=== PATIENT | male | born 1975 | race Caucasian/White ===

== ENCOUNTER 2019-01-16 08:13 | Emergency (ER) | payer MEDICARE, BC, MEDICAID ==
[~2019-01-16] VITALS: Ht 180.3 cm; Wt 79.4 kg
--- NOTE | 2019-01-16 08:23 | NUR ---
is at bedside doing the MSE.
--- NOTE | 2019-01-16 08:35 | NUR ---
Patient discharged to home in stable conditon. Written and verbal after care instructions given to patient. Patient verbalizes understanding of instructions.
== END 2019-01-16 08:36 | disposition home or self-care (01) ==
LOC: ER 08:13
DX: L01.00 Impetigo, unspecified (principal); F17.290 Nicotine dependence, other tobacco product, uncomplicated
CPT/HCPCS: A4663

== ENCOUNTER 2019-02-14 21:50 | Emergency (ER) | payer MEDICARE, BC, MEDICAID ==
[~2019-02-14] VITALS: Ht 180.3 cm; Wt 79.4 kg
[2019-02-14] MEDS ORDERED: QUET200T PO (22:01)
--- NOTE | 2019-02-14 22:02 | NUR ---
Dr. Dozier at bedside for MSE.
--- NOTE | 2019-02-14 22:13 | NUR ---
Xray at bedside.
--- NOTE | 2019-02-14 22:45 | NUR ---
Ultrasound at bedside.
[2019-02-14] MEDS ORDERED: SULFAMETH/TRIMETH 800/160 MG TABLET PO ONE (23:30)
[2019-02-14] MEDS ORDERED: CEphaleXIN 500 MG CAPSULE PO ONE (23:30)
[2019-02-14] MEDS ORDERED: CEphaleXIN 500 MG CAPSULE ONE (23:35)
[2019-02-14] MEDS ORDERED: SULFAMETH/TRIMETH 800/160 MG TABLET ONE (23:36)
--- NOTE | 2019-02-14 23:36 | NUR ---
Patient discharged to home in stable conditon. Written and verbal after care instructions given. Patient verbalizes understanding of instructions. Pt ambulated out of ER with steady gait, no acute signs of distress, VSS, all belongings taken.
[2019-02-14 23:37] VITALS: BP 113/70
== END 2019-02-14 23:38 | disposition home or self-care (01) ==
LOC: ER 21:52
DX: L03.115 Cellulitis of right lower limb (principal); L03.116 Cellulitis of left lower limb; R60.9 Edema, unspecified; K59.00 Constipation, unspecified; F17.290 Nicotine dependence, other tobacco product, uncomplicated; Z79.899 Other long term (current) drug therapy
CPT/HCPCS: 74018; A4663